=== PATIENT | male | born 1985 | race Two or more races ===

== ENCOUNTER 2024-08-30 22:34 | Emergency (ER) | payer OTHER ==
[~2024-08-30] VITALS: Ht 188 cm; Wt 79.8 kg
[2024-08-30] MEDS ORDERED: ZESTORETIC 10-1 EACH PO (23:15)
[2024-08-30] MEDS ORDERED: SIMVASTATIN5 MG PO (23:16)
[2024-08-30] MEDS ORDERED: ONDANSETRON HCL 2 MG/ML VIAL IV ONE (23:45)
[2024-08-30] MEDS ORDERED: FAMOtidine 10 MG/ML (4ML VIAL) IV ONE (23:45)
[2024-08-30] MEDS ORDERED: CHOLESTYRAMINE/ASPARTAME LIGHT 4 G/PKT PACKET PO ONE (23:45)
[2024-08-30] MEDS ORDERED: 0.9 % SODIUM CHLORIDE 1,000 ML IV ONE (23:45)
[2024-08-31] MEDS ORDERED: ONDANSETRON HCL 2 MG/ML VIAL ONE
[2024-08-31] MEDS ORDERED: FAMOTIDINE/PF 20 MG/2 ML VIAL ONE
[2024-08-31 00:14] LABS: BASO % 0.3 % (0.1-1.2); EOS # 0.04 (0.04-0.54); EOS % 0.7 % (0.7-7.0); HEMATOCRIT 37.9 % (40.1-51.0); HEMOGLOBIN 12.4 g/dL (13.7-17.5); LYMPH # 1.38 (1.18-3.74); LYMPH % 22.8 % (19.3-53.1); MEAN CORPUSCULAR HEMOGLOBIN 27.9 pg (25.6-32.2); MONO # 0.79 (0.24-0.82); NEUT # 3.81 (1.56-6.13); NEUT % 62.9 % (34.0-71.1); PLATELET COUNT 203 K/uL (163-369); RED BLOOD COUNT 4.44 M/uL (4.63-6.08); RED CELL DISTRIBUTION WIDTH 12.3 % (11.6-14.4)
[2024-08-31 00:15] LABS: MONO % 13.1 % (4.7-12.5)
[2024-08-31 00:36] LABS: INR 1.07; PARTIAL THROMBOPLASTIN TIME 27.2 SECONDS (22.0-34.0); PROTHROMBIN TIME 11.6 SECONDS (9.0-11.5)
[2024-08-31 00:41] LABS: ALBUMIN 3.5 gm/dL (3.4-5.0); BILIRUBIN TOTAL 1.11 mg/dL (0.3-1.2); CALCIUM 8.2 mg/dL (8.5-10.1); CREATININE SERUM 0.88 mg/dL (0.70-1.30); GFR 95.91; GLOBULINA 3.2 G/DL (2.4-3.5); POTASSIUM 3.43 mEq/L (3.5-5.1); TOTAL PROTEIN 6.7 gm/dL (6.4-8.2)
[2024-08-31 01:32] LABS: URINE APPEARANCE Clear; URINE BILIRRUBIN Negative (NEGATIVE); URINE BLOOD Negative; URINE COLOR Yellow; URINE GLUCOSE Negative (NEGATIVE); URINE KETONE Negative (NEGATIVE); URINE LEUKOCYTE Negative; URINE NITRATE Negative; URINE PROTEIN Negative (NEGATIVE)
[2024-08-31 01:37] LABS: URINE EPITHELIAL CELLS 3.3 uL (0.0-38.8); URINE RBC 2.3 uL (0.0-20.8); URINE WBC 3.7 uL (0.0-23.2)
[2024-08-31 01:50] LABS: URINE BACTERIA 2.4 uL (0.0-1933)
[2024-08-31] MEDS ORDERED: PHENERGAN25 MG PO (04:37)
== END 2024-08-31 04:49 ==
LOC: ER 22:50
PROVIDERS: General Practice
DX: R19.7 Diarrhea, unspecified (principal); R10.9 Unspecified abdominal pain; I10 Essential (primary) hypertension; Z91.013 Allergy to seafood